=== PATIENT | female | born 1970 | race Caucasian/White ===

== ENCOUNTER 2018-11-07 19:05 | Emergency (ER) | payer OTHER ==
[~2018-11-07] VITALS: Ht 165.1 cm; Wt 61.2 kg
[2018-11-07 19:26] VITALS: BP 134/66
--- NOTE | 2018-11-07 20:23 | PHYS DOC ---
Past Medical History Past Medical History: No Pertinent History (FRANCISCO RAM APRN) Past Surgical History: Cholecystectomy, Tubal ligation (FRANCISCO RAM APRN) Alcohol Use: None Drug Use: None (FRANCISCO RAM APRN) Adult General Chief Complaint Chief Complaint: FOOT INJURY PAIN HPI HPI Patient is a 48 year old female who presents with was lifting weights at the gym this evening when she dropped a 25 pound weight onto the top of her left foot. Patient rates her pain a 3 out of 10 when she sitting there but she standing or moving or walking on the foot is 10 out of 10. 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 Patient states she does not currently need any pain medicine at this time. Patient states it is aching. (FRANCISCO RAM APRN) Review of Systems Review of Systems Constitutional: Denies fever or chills [] Musculoskeletal: Left foot pain. Denies back pain or joint pain [] Integument: Denies rash or skin lesions [] Neurologic: Denies headache, focal weakness or sensory changes [] All other systems were reviewed and found to be within normal limits, except as documented in this note. (FRANCISCO RAM APRN) Allergies Allergies Allergies Coded Allergies Type Severity Reaction Last Updated Verified Sulfa (Sulfonamide Antibiotics) Allergy Severe HIVES 11/07/18 Yes (BOB ALLEN DO) Physical Exam Physical Exam Constitutional: Well developed, well nourished, no acute distress, non-toxic appearance. [] Skin: Warm, dry, no erythema, no rash. [] Extremities: Mid dorsal foot and ball of foot tenderness, no cyanosis, no clubbing, ROM intact, 1+ mid dorsal foot edema. [] Neurologic: Alert and oriented X 3, normal motor function, normal sensory function, no focal deficits noted. [] Psychologic: Affect normal, judgement normal, mood normal. [] (FRANCISCO RAM APRN) Current Patient Data Vital Signs Vital Signs Date Time Temp Pulse Resp B/P (MAP) Pulse Ox O2 Delivery O2 Flow Rate FiO2 11/07/18 19:26 98.4 72 18 134/66 (88) 100 Room Air 98.4 (TIFFANYBOB Victorina SANTILLAN) EKG EKG [] (FRANCISCO RAM APRN) Radiology/Procedures Radiology/Procedures [] (FRANCISCO RAM APRN) Course & Med Decision Making Course & Med Decision Making Patient is a 48 year old female who presents with was lifting weights at the gym this evening when she dropped a 25 pound weight onto the top of her left foot. Patient rates her pain a 3 out of 10 when she sitting there but she sta nding or moving or walking on the foot is 10 out of 10. 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 Patient states she does not currently need any pain medicine at this time. Patient states it is aching. Alert and oriented. Speaks in full clear sentences. Skin pink warm and dry. Patient has dorsal foot swelling At mid foot. No bruising seen at this time. Foot is warm and pedal pulse is present. Cap refill is less than 3 seconds. Patient can wiggle her toes but it is painful. Patient is able to walk on her foot but is painful. Patient denies any numbness or tingling or coolness to the extremity. Xray read by Dr Allen. No obvious acute findings. Patient is put in a post op shoe and raheel bandage. Patient to follow up with primary care or Orthopedics. (FRANCISCO RAM APRN) Dragon Disclaimer Dragon Disclaimer This electronic medical record was generated, in whole or in part, using a voice recognition dictation system. (FRANCISCO RAM APRN) Departure Departure Impression: Primary Impression: Foot pain, left Disposition: 01 HOME, SELF-CARE Condition: STABLE Referrals: Germain CASTILLO MD (PCP) Patient Instructions: Foot Contusion Additional Instructions: Follow up with primary care provider. Use Ice and elevation. Use medication as prescribed. You can also take Ibuprofen. Scripts Hydrocodone Bit/Acetaminophen (HYDROCODONE-APAP 5-325 ) 1 Tab Tablet 1 TAB PO PRN Q6HRS PRN for PAIN, #10 TAB 0 Refills Prov: FRANCISCO RAM APRN 11/07/18 Attending Signature Attending Signature I have reviewed the PA/SITE SUPERVISING TECHNICAL OPERATOR's note and plan of care. I was available for consultation as needed during the patient's visit in the emergency department. I agree with the clinical impression, plan, and disposition. (BOB ALLEN DO) FRANCISCO RAM SCIENTIFIC INFORMATICS ANALYST Nov 07, 2018 20:23 BOB ALLEN DO Nov 09, 2018 05:21
[2018-11-07] MEDS ORDERED: HYDR-2761 PO (20:57)
--- NOTE | 2018-11-07 23:50 | RAD ---
Left foot 3 views. HISTORY: Injury 3 views were taken of the left foot. There is not evidence of an acute fracture or osseous abnormality. There is slight spurring on the calcaneus. There is mild soft tissue swelling. IMPRESSION: 1. No fracture or acute osseous abnormality. Electronically signed by: Anthony Parmar MD (11/07/2018 11:47 PM) [id number]
== END 2018-11-07 21:09 | disposition home or self-care (01) ==
LOC: ER 19:05
DX: M79.672 Pain in left foot (principal); G89.11 Acute pain due to trauma; Z88.2 Allergy status to sulfonamides; W20.8XXA Other cause of strike by thrown, projected or falling object, initial encounter; Y93.89 Activity, other specified; Y92.89 Other specified places as the place of occurrence of the external cause; Y99.8 Other external cause status
CPT/HCPCS: 73630; 99284